=== PATIENT | female | born 1935 | race Caucasian/White ===

== ENCOUNTER → 2016-06-21 | Outpatient (CLI) | payer OTHER ==
[~2016-06-21] VITALS: Ht 160 cm; Wt 79.4 kg
[~2016-06-21] MED LIST: ACYCLOVIR 800800 MG PO; ALIGN4 MG PO; ALLEGRA ALLERG180 MG PO; ASPIR 8181 MG PO; CENTRUM SILVER1 EAC4 PO; GLUCOSAMINE HC500 MG PO; HYDROCHLOROTH12.5 M1 PO; LOVASTATIN 20 M20 MG PO; MEDROLDOSEPACK PO; NORCO 5-325 TA1 EACH PO; PRINIVIL20 M1 PO; TYLENOL325 MG PO; VITAMIN D2000 UNIT PO; WOMEN'S 50+ DA1 EAC1 PO
--- NOTE | ~2016-06-21 | S ---
[facility] [place] [address] SURGICAL PATH RPT PROCEDURE Name: NIHARIKA SPRINGER Room #: REG CLMartha Villanueva.#: [id number] Admission: 06/21/16 Date of : 31 Discharge: Report #: [id number] Path Case #: [id number] PATHOLOGY REPORT COLLECTION DATE: 06/21/2016 RECEIVED DATE: 06/21/2016 SUBMITTING PHYS: Dr. Farhan Maldonado OTHER PHYS: Dr. Amber Peterson SPECIMEN(S) RECEIVED: A.Random colon bx to R/O microscopic colitis * * * * * * * * * * * * FINAL DIAGNOSIS: Large intestine, random colon, rule out microscopic colitis, endoscopic biopsy: - Mild nonspecific changes. (Please see comment) - Negative for microscopic colitis. - Negative for dysplasia or malignancy. COMMENT: Examination shows a rare crypt with cryptitis. There is no surface epithelial inflammation present. Crypt abscess formation is not identified as well. The lamina propria cellularity is comprised of lymphocytes, plasma cells, as well as occasional eosinophils. Crypt architectural abnormalities are not identified. The findings may be suggestive of an acute self-limited episode of colitis, resolving episode of colitis, bowel preparation or medication related. There is no increase in intraepithelial lymphocytosis, or thickening of collagen epithelium. There is no dysplasia or malignancy present. Please correlate clinically. (IUV:csd; d/t: 06/22/2016) PATHOLOGIST: Aleja Padron M.D. REPORT ELECTRONICALLY SIGNED BY: Aleja Padron M.D. DATE/TIME: 06/22/2016 15:48 * * * * * * * * * * * * GROSS PATHOLOGY: Received in formalin labeled "Niharika Springer and random colon bx," are 5 segments of mitchell soft tissue measuring 2.1 x 0.2 x 0.2 cm in aggregate dimensions and ranging from 0.3 to 0.7 cm in maximum dimension. The specimen is submitted entirely in cassette A1. (TTL; 06/21/2016) [address] [address] SURGICAL PATH RPT PROCEDURE Name: NIHARIKA SPRINGER E Room #: REG [facility].#: [id number] Admission: 06/21/16 Date of : 31 Discharge: Report #: [id number] Path Case #: [id number] CLINICAL HISTORY: Change in bowel habits INITIAL CPT CODE(S): A; 22382 Professional services performed by [facility] at [address] , [place] [address] Technical services performed by [facility] at [address] [place] [address], [facility] [address] [address]. [facility] [address] [place] [id number] PHONE: [phone] DIRECTOR: Gaston Amezquita M.D. * * * END OF REPORT * * *
--- NOTE | ~2016-06-21 | P ---
[facility] [place] [address] PROCEDURE REPORT Name: DIMA JASON Room #: REG [facility] HuangAmirah#: [id number] Admission: 06/21/16 Attend Phys: Farhan Seaman Discharge: Date of : 33 Report #: [id number] THIS REPORT FOR: //name// CC: Farhan Peterson MD DATE OF SERVICE: 06/21/2016 PROCEDURE PERFORMED: Colonoscopy with biopsies. HISTORY OF PRESENT ILLNESS: The patient is an 80-year-old female who was seen in the office by myself on 11/23/2015 with a history of intermittent chronic diarrhea. We discussed possibility of irritable bowel syndrome. At that time, she was taking Protonix, which was helpful. Her last colonoscopy was in 2007. She has a family history of colon cancer in her daughter. Despite her probiotic, she continues to have intermittent diarrhea. The plan is for colonoscopy today. She denies any blood in her stools. Her weight has been stable. DESCRIPTION OF PROCEDURE: The risks and benefits of the procedure were explained to the patient, those risks including but not limited to bleeding, perforation, the risk of sedation. She understood these risks and gave informed consent. Sedation was given using propofol per anesthesia. Next, a digital rectal exam was initially performed, which was normal. Next, using a standard [employer] colonoscope, the scope was placed in the patient's anus and advanced under direct vision to the cecum. The overall prep was excellent. The cecum and ileocecal valve were normal in appearance. Diverticulosis was noted throughout the entire colon today. There was no evidence of inflammation, otherwise normal ascending, transverse, descending and sigmoid colon. Random biopsies were obtained to rule out the possibility of microscopic colitis. The rectal mucosa was normal. On retroflexion, no abnormalities were noted. Scope was then withdrawn and the procedure terminated. The patient tolerated the procedure well. IMPRESSION: 1. Pandiverticulosis. 2. Otherwise, normal colonoscopy. RECOMMENDATIONS: 1. Await biopsy results. 2. We discuss starting a trial of Questran at this time for her diarrhea. [facility] [address] [place] [address] PROCEDURE REPORT Name: CASIEDIMA Room #: REG CL Caitie#: [id number] Admission: 06/21/16 Attend Phys: Farhan Seaman Discharge: Date of : 33 Report #: [id number] Thank you for allowing me to participate in her care. By: 0850 1032 Farhan Maldonado MD /nt
== END ==
LOC: GI 07:06
DX: K58.0 Irritable bowel syndrome with diarrhea (principal); Z80.0 Family history of malignant neoplasm of digestive organs; K57.30 Diverticulosis of large intestine without perforation or abscess without bleeding; I10 Essential (primary) hypertension; E78.00 Pure hypercholesterolemia, unspecified; G47.33 Obstructive sleep apnea (adult) (pediatric); Z90.710 Acquired absence of both cervix and uterus; Z90.49 Acquired absence of other specified parts of digestive tract
CPT/HCPCS: 62110; 62900

== ENCOUNTER → 2016-06-26 | Outpatient (CLI) | payer OTHER ==
[~2016-06-26] VITALS: Ht 160 cm; Wt 83.7 kg
[~2016-06-26] MED LIST changes: +HYDROCODONE-AP1 EAC6 PO; +UNICOMPLEX M TA1 TA1 PO
--- NOTE | ~2016-06-26 | HPC ---
[facility] [address] [place] [address] PAIN MANAGEMENT CONSULTATION Name: DIMA JASON Room #: REG PATRICK Kay.#: [id number] Admission: 06/26/16 Attend Phys: Palmer Mejia DO Discharge: Date of : 33 Report #: [id number] THIS REPORT FOR: //name// CC: Mehul Mejia The patient is a very pleasant 80-year-old female seen in consultation at the request of Dr. Marrero for assistance with management of pain, low back, right leg, exacerbated with weightbearing. She has subjective weakness right leg noted primarily going up stairs. Does have a little bowel and bladder incontinence, though she notes no saddle anesthesia. Takes Tylenol for sleep. She unfortunately has been sleeping in her recliner due to ongoing pain. The patient had prior been seen 7 years ago, given epidural injection with overall efficacy. Currently, the patient notes pain is continuous, aching, rates anywhere from 4-6 on a 0-10 visual analog scale. REVIEW OF SYSTEMS: Complete review of systems attached to chart and gone over with the patient. She is . Has history of hypertension, treated with hydrochlorothiazide and lisinopril. Dyslipidemia for which she takes lovastatin, some chronic colon issues and DJD. She did have shingles, right facial distribution about a year and a half ago. This fortunately resolved. The patient is retired. Pain impact score averages about 7.2. PHYSICAL EXAMINATION: VITAL SIGNS: 5 feet 3 inches, 180 pound female, BMI is 32.7 kilograms per meter squared. Blood pressure is 134/77, pulse 84, respirations are 20. NEUROLOGIC: Cranial nerves 2-12 are grossly intact. HEENT: Pupils equal, reactive to light and accommodation. Extraocular muscles are intact. NECK: Thyroid unremarkable. Upper extremity strength is preserved. HEART: Regular and rhythmical with a grade 2/6 systolic ejection murmur. LUNGS: Clear to auscultation. ABDOMEN: Shows modestly endomorphic build. MUSCULOSKELETAL: She does have thoracolumbar kyphosis, markedly antalgic gait. Tender from about L3 down in the lumbar paravertebral area, +1 pretibial edema lower extremity. Right leg is weak compared to the left, perhaps 3/5 to all muscle groups tested, perhaps 4/5 on the left. Patellar and Achilles reflexes are quite diminished but symmetric. Most recent MRI of the lumbar spine from 06/14/2016 notes degenerative changes throughout the lumbar spine, mild right neural foraminal narrowing at [place]4-[place] [address] PAIN MANAGEMENT CONSULTATION Name: DIMA JASON Room #: REG Martha Blood#: [id number] Admission: 06/26/16 Attend Phys: Palmer Mejia DO Discharge: Date of : 33 Report #: [id number] ASSESSMENT: Symptomatic lumbar radiculopathy, component of lumbar spondylosis. The patient prior seen 7 years ago with good relief of epidural injections. RECOMMENDATIONS: 1. Epidural injection under fluoroscopy today at L4-L5. 2. Follow up in 3 weeks for reevaluation and consideration for facet joint injections under fluoroscopy, L4-L5 and L5-S1 bilateral. Thank you for allowing me to participate in the patient's care. I will keep you abreast of her progress. PROCEDURE NOTE: Lumbar epidural injection under fluoroscopy. PROCEDURE: Lumbar epidural steroid injection. PROCEDURE NOTE: After both written and informed consent to include risk of spinal cord damage, increased pain, weakness and dural puncture, the patient was taken to the fluoroscopy suite, placed in the prone position. After sterile prep and drape, a skin wheal with lidocaine was raised. A 22-gauge epidural Tuohy needle was inserted in the midline at L4-L5 with good loss to resistance. Negative aspiration for cerebrospinal fluid or blood was noted. Then 1 mL of Omnipaque under biplanar fluoroscopy showed good spread within the epidural space. This was followed with 80 mg of triamcinolone plus 1 mL of 1.5% preservative-free Xylocaine, 0.5 mL Xylocaine was then injected to flush the needle; it was removed. The patient was monitored for an appropriate period of time and discharged in good and stable condition. <ELECTRONICALLY SIGNED> By: Palmer Mejia DO 06/29/16 1240 [id number] Palmer Mejia DO /nt
[2016-06-26 13:28] VITALS: BP 134/77
== END ==
LOC: PAIN 06:54
DX: M54.16 Radiculopathy, lumbar region (principal); M47.816 Spondylosis without myelopathy or radiculopathy, lumbar region; I10 Essential (primary) hypertension; E78.5 Hyperlipidemia, unspecified; M19.90 Unspecified osteoarthritis, unspecified site; Z90.710 Acquired absence of both cervix and uterus; Z90.49 Acquired absence of other specified parts of digestive tract

== ENCOUNTER → 2016-07-17 | Outpatient (CLI) | payer OTHER ==
[~2016-07-17] VITALS: Ht 162.6 cm; Wt 82.6 kg
[~2016-07-17] MED LIST changes: +APAP500 PO
--- NOTE | ~2016-07-17 | HPC ---
[facility] [place] [address] PAIN MANAGEMENT CONSULTATION Name: DIMA JASON Room #: REG CLMartha Kay.#: [id number] Admission: 07/17/16 Attend Phys: Palmer Mejia DO Discharge: Date of : 33 Report #: [id number] THIS REPORT FOR: //name// CC: Amber Mejia The patient is a very pleasant 80-year-old female. She had an epidural injection on 06/26/2016 at L4-L5, returns to pain clinic today noting very good improvement of baseline pain. She states her pain "hurts," but "the pain is gone now." She has been taking Tylenol over the counter 3 a day. Functional status is improved. She rates her pain as 2-3/10. States she had 80% relief following the injection. Still, however, has pain that interferes with function . Yesterday she had to stop walking secondary to pain. PHYSICAL EXAMINATION: Otherwise unchanged an 80-year-old female, BMI is 31.2 kilograms per meter squared. Blood pressure, pulse and respirations, room air oxygen saturation are all normal as noted on the EMR. Ongoing pain in the back radiating to the right leg, mildly antalgic gait, positive straight leg raise on the right. ASSESSMENT: Symptomatic lumbar radiculopathy, 80% improved with lumbar epidural injection. RECOMMENDATIONS: Repeat epidural injection under fluoroscopy today. We will not make a followup appointment, we will see the patient simply as needed ongoing. PROCEDURE: Lumbar epidural injection under fluoroscopy. PROCEDURE NOTE: After both written and informed consent to include risk of spinal cord damage, increased pain, weakness and dural puncture, the patient was taken to the fluoroscopy suite, placed in the prone position. After sterile prep and drape, a skin wheal with lidocaine was raised. A 22-gauge epidural Tuohy needle was inserted in the midline at L5-S1 with good loss to resistance. Negative aspiration for cerebrospinal fluid or blood was noted. Then 1 mL of Omnipaque under biplanar fluoroscopy showed good spread within the epidural space. This was followed with 80 mg of triamcinolone plus 1 mL of 1.5% preservative-free Xylocaine, 0.5 mL Xylocaine was then injected to flush the needle; it was removed. The patient was monitored for an appropriate period of time and discharged in good and stable condition. By: 1601 0222 Palmer Mejia DO /nt
[2016-07-17 12:47] VITALS: BP 152/89
== END ==
LOC: PAIN 07:46
DX: M54.16 Radiculopathy, lumbar region (principal)

== ENCOUNTER → 2017-01-11 | Outpatient (CLI) | payer OTHER | LOC: NUC 08:22 | DX: M85.89 Other specified disorders of bone density and structure, multiple sites (principal); E21.3 Hyperparathyroidism, unspecified; Z78.0 Asymptomatic menopausal state ==

== ENCOUNTER → 2017-05-14 | Outpatient (CLI) | payer OTHER ==
--- NOTE | ~2017-05-14 | 2DMMODE ---
[facility] [address] [place] [address] 2 D/M-MODE ECHOCARDIOGRAM Name: CASIEDIMA Chepe Room #: REG CL [facility]#: [id number] Admission: 05/14/17 Attend Phys: Devin Brennan MD Discharge: Date of : 31 Date of Service: 05/14/17 0930 Report #: [id number] THIS REPORT FOR: //name// APPROVED REPORT Study performed: 05/14/2017 07:58:02 EXAM: Comprehensive 2D, Doppler, and color-flow Echocardiogram Patient Location: Echo lab Status: routine BSA: 1.76 HR: 52 bpm BP: 159/82 mmHg Other Information Study Quality: Adequate Indications Chest Pain 2D Dimensions RVDd: 28.96 mm LVEF(%): 67.99 (>50%) IVSd: 14.12 (7-11mm) LVOT Diam: 18.74 (18-24mm) LVDd: 38.33 mm PWd: 13.09 (7-11mm) Ascending Ao: 38.43 (22-36mm) LVDs: 24.04 (25-40mm) Aortic Root: 31.50 mm IVC: 16.00 mm Swift's LVEF: 67.99 % Volumes Left Atrial Volume (Systole) Single Plane 4CH: 52.70 mL Single Plane 2CH: 52.28 mL LA ESV Index: 34.00 mL/m2 Aortic Valve AoV Peak Jordan.: 2.19 m/s AO Peak Gr.: 19.23 mmHg LVOT Max P.41 mmHg AO Mean Gr.: 8.82 mmHg LVOT Mean P.81 mmHg AO V2 Mean: 1.39 m/s LVOT Max V: 1.16 m/s AO V2 VTI: 50.24 cm LVOT Mean V: 0.77 m/s AME (VTI): 1.63 cm2 LVOT V1 VTI: 29.65 cm AME Vmax: 1.46 cm2 AI Vmax: 4.37 m/s SV (LVOT): 81.77 mL AI [place]: 1.86 m/s2 [facility] [address] [place] [address] 2 D/M-MODE ECHOCARDIOGRAM Name: CASIEDIMA Room #: REG [facility]#: [id number] Admission: 05/14/17 Attend Phys: Devin Brennan MD Discharge: Date of : 31 Date of Service: 05/14/17 0930 Report #: [id number] PHT: 681.92 ms Mitral Valve E/A Ratio: 0.6 MV Decel. Time: 368.16 ms MV E Max Jordan.: 0.65 m/s MV A Jordan.: 1.13 m/s MV PHT: 106.76 ms IVRT: 134.95 ms Pulmonary Valve PV Peak Jordan.: 0.84 m/s PV Peak Gr.: 2.79 mmHg Pulmonary Vein P Vein S: 0.42 m/s P Vein A: 0.25 m/s P Vein D: 0.29 m/s P Vein A Dur.: 69.2 msec P Vein S/D Ratio: 1.45 Tricuspid Valve TR Peak Jordan.: 2.35 m/s RAP Estimate: 5.00 mmHg TR Peak Gr.: 22.00 mmHg PA Pressure: 27.00 mmHg Left Ventricle The left ventricle is normal size. Mild concentric left ventricular hypertrophy. The left ventricular systolic function is normal. The left ventricular ejection fraction is within the normal range. LVEF is 55-60%. Mild diastolic dysfunction is present (impaired relaxation pattern). Right Ventricle The right ventricle is normal size. The right ventricular systolic function is normal. Atria Left atrium is at the upper limits of normal. The right atrium size is normal. Aortic Valve Aortic valve is calcified. Mild to moderate aortic regurgitation. There is mild valvular aortic stenosis. Calculated aortic valve area is 1.7 cm2 with maximum pressure gradient of 19 mmHg and mean pressure gradient of 9 mmHg. Mitral Valve The mitral valve is normal in structure. Mild mitral regurgitation. [facility] [address] [place] [address] 2 D/M-MODE ECHOCARDIOGRAM Name: DIMA JASON Room #: REG CL [facility]#: [id number] Admission: 05/14/17 Attend Phys: Devin Brennan MD Discharge: Date of : 31 Date of Service: 05/14/17 0930 Report #: [id number] No evidence of mitral valve stenosis. Tricuspid Valve The tricuspid valve is normal in structure. Mild to moderate tricuspid regurgitation. PAP is estimated at 27 mmHg. Pulmonic Valve Pulmonic valve is not well visualized. Great Vessels The aortic root is normal in size. IVC is normal in size and collapses >50% with inspiration. Pericardium There is no pericardial effusion. <Conclusion> The left ventricle is normal size. Mild concentric left ventricular hypertrophy. The left ventricular systolic function is normal. Mild diastolic dysfunction is present (impaired relaxation pattern). The right ventricle is normal size. Mild to moderate aortic regurgitation. There is mild valvular aortic stenosis. Mild mitral regurgitation. Mild to moderate tricuspid regurgitation. PAP is estimated at 27 mmHg. <ELECTRONICALLY SIGNED> By: Devin Brennan MD 05/14/17929 9 9 Devin Brennan MD /INF
== END ==
LOC: CV 07:26
DX: I08.3 Combined rheumatic disorders of mitral, aortic and tricuspid valves (principal)

== ENCOUNTER → 2018-05-13 | Outpatient (CLI) | payer OTHER ==
--- NOTE | 2018-05-13 10:50 | 2DMMODE ---
[place] [address] 2 D/M-MODE ECHOCARDIOGRAM Name: CASIEDIMA Chepe Room #: REG [facility]#: [id number] ������������� Admission: 05/13/18 ������������� Attend Phys: Devin Brennan MD Discharge: ��� ������������� ��� Date of : 31 Date of Service: 05/13/18 1050 �� Report #: [id number] �������� ��������������������������������������������[id number] THIS REPORT FOR: //name// APPROVED REPORT Study performed: 05/13/2018 09:50:38 EXAM: Comprehensive 2D, Doppler, and color-flow Echocardiogram Patient Location: Out-Patient Status: routine BSA: 1.83 HR: 48 bpm BP: 158/70 mmHg Rhythm: NSR/ISAAC Other Information Study Quality: Adequate Indications Chest Pain HTN 2D Dimensions RVDd: 32.34 mm IVSd: 12.10 (7-11mm) LVOT Diam: 19.73 (18-24mm) LVDd: 42.66 mm PWd: 10.46 (7-11mm) LVDs: 30.10 (25-40mm) Aortic Root: 33.68 mm Volumes Left Atrial Volume (Systole) Single Plane 4CH: 43.31 mL Single Plane 2CH: 50.94 mL LA ESV Index: 27.00 mL/m2 Aortic Valve AoV Peak Jordan.: 2.28 m/s AO Peak Gr.: 20.71 mmHg LVOT Max P.19 mmHg AO Mean Gr.: 11.25 mmHg AO V2 Mean: 1.60 m/s LVOT Max V: 1.02 m/s AO V2 VTI: 57.73 cm AME Vmax: 1.37 cm2 AI Vmax: 4.02 m/s AI [place]: 2.49 m/s2 [facility] [place] [address] [place] [address] 2 D/M-MODE ECHOCARDIOGRAM Name: DIMA JASON Chepe Room #: [facility]#: [id number] ������������� Admission: 05/13/18 ������������� Attend Phys: Devin Brennan MD Discharge: ��� ������������� ��� Date of : 31 Date of Service: 05/13/18 1050 �� Report #: [id number] �������� ��������������������������������������������[id number] PHT: 467.99 ms Mitral Valve E/A Ratio: 0.7 MV Decel. Time: 371.33 ms MV E Max Jordan.: 0.90 m/s MV A Jordan.: 1.22 m/s MV PHT: 107.68 ms IVRT: 73.82 ms Pulmonary Valve PV Peak Jordan.: 0.79 m/s PV Peak Gr.: 2.48 mmHg Pulmonary Vein P Vein S: 0.68 m/s P Vein A: 0.27 m/s P Vein D: 0.44 m/s P Vein A Dur.: 152.2 msec P Vein S/D Ratio: 1.55 Tricuspid Valve TR Peak Jordan.: 2.52 m/s RAP Estimate: 5.00 mmHg TR Peak Gr.: 25.33 mmHg PA Pressure: 30.00 mmHg Left Ventricle The left ventricle is normal size. There is normal LV segmental wall motion. Moderate basal septal hypertrophy is present. Left ventricular systolic function is normal. LVEF is 60%. Mild diastolic dysfunction is present (impaired relaxation pattern). Right Ventricle The right ventricle is normal size. The right ventricular systolic function is normal. Atria Left atrium is at the upper limits of normal. The right atrium size is normal. Aortic Valve Aortic valve is moderately calcified. Mild to moderate aortic regurgitation. Mitral Valve Mitral valve leaflets are mildly thickened. Mild mitral annular calcification. Moderate mitral regurgitation. Tricuspid Valve [facility] [address] [place] [address] 2 D/M-MODE ECHOCARDIOGRAM Name: DIMA JASON Room #: REG [facility]#: [id number] ������������� Admission: 05/13/18 ������������� Attend Phys: Devin Brennan MD Discharge: ��� ������������� ��� Date of : 31 Date of Service: 05/13/18 1050 �� Report #: [id number] �������� ��������������������������������������������[id number] The tricuspid valve is normal in structure. Mild to moderate tricuspid regurgitation. Estimated PAP is 30mmHg. Pulmonic Valve Pulmonic valve is not well visualized. Trace pulmonic regurgitation. Great Vessels The aortic root is normal in size. Ascending aorta is not well visualized. IVC is normal in size and collapses >50% with inspiration. Pericardium There is no pericardial effusion. <Conclusion> The left ventricle is normal size. Left ventricular systolic function is normal. Mild diastolic dysfunction is present (impaired relaxation pattern). The right ventricle is normal size. Left atrium is at the upper limits of normal. Aortic valve is moderately calcified. Mild to moderate aortic regurgitation. Moderate mitral regurgitation. Mild to moderate tricuspid regurgitation. Estimated PAP is 30mmHg. ��������������������������������������������� <ELECTRONICALLY SIGNED> ���������������������������������������� By: Devin Brennan MD ��������������������������������������������� 05/13/18 1050 105 1050 Devin Brennan MD /INF
== END ==
LOC: CV 08:59
DX: I08.3 Combined rheumatic disorders of mitral, aortic and tricuspid valves (principal); I10 Essential (primary) hypertension

== ENCOUNTER 2019-05-01 09:30 | Outpatient (CLI) | payer OTHER ==
[2019-11-20] MEDS ORDERED: ASA81BEC PO (09:08)
== END 2019-11-19 | disposition home or self-care (01) ==
LOC: CANPRECLI → NUC 09:30
PROVIDERS: ATTEND Internal Medicine Cardiovascular Disease
DX: R07.9 Chest pain, unspecified (principal); Z53.8 Procedure and treatment not carried out for other reasons

== ENCOUNTER → 2019-05-19 | Outpatient (CLI) | payer OTHER | LOC: SJCVCIMAG 06:57 | DX: I44.0 Atrioventricular block, first degree (principal); I34.0 Nonrheumatic mitral (valve) insufficiency; E78.00 Pure hypercholesterolemia, unspecified; R60.0 Localized edema; I10 Essential (primary) hypertension; E78.5 Hyperlipidemia, unspecified; Z79.82 Long term (current) use of aspirin; Z79.899 Other long term (current) drug therapy; Z88.6 Allergy status to analgesic agent ==

== ENCOUNTER → 2019-11-20 | Outpatient (CLI) | payer OTHER ==
[~2019-11-20] MED LIST changes: +ASA81BEC PO
[2019-11-20 09:02] LABS: HEMATOCRIT 34.8 % (37.0-47.0); MCH 32.7 pg (26.0-34.0); MCHC 34.5 g/dL (28.0-37.0); MCV 94.6 fL (80.0-100.0); RBC 3.68 mil/uL (4.20-5.00); RDW 13.9 % (10.5-14.5); WBC 7.1 thou/uL (4.0-11.0)
[2019-11-20 09:10] LABS: CALCIUM 9.5 mg/dL (8.5-10.1); CREATININE 1.6 mg/dL (0.6-1.0); POTASSIUM 4.3 mmol/L (3.5-5.1)
--- NOTE | 2019-11-20 10:06 | EKG ---
[facility] [place] [place] [address] ELECTROCARDIOGRAM REPORT Name: DIMA JASON Room #: REG [facility].#: [id number] Admission: 11/20/19 Attend Phys: Devin Brennan MD Discharge: Date of : 31 Report #: [id number] THIS REPORT FOR: cc: Margarette Fraire MD, Jennifer S. MD Lammoglia, Francisco J. MD ~ THIS REPORT FOR: //name// [facility] Test Date: 2019-11-20 Test Time: 09:11:46 Pat Name: DIMA JASON Department: Room: Gender: F [employer] Architect: SILVINA : 1935 Requested By: Devin Brennan Order Number: [id number] MD: Enzo Kraft Measurements Intervals [place] Rate: 56 P: 0 ID: [id number] QRS: 4 QRSD: 87 T: 26 QT: 479 QTc: 463 Interpretive Statements Sinus rhythm Prolonged ID interval early transition Nonspecific ST-T wave change Compared to ECG 10/07/2007 09:28:30 First degree AV block now more evident Electronically Signed On 11-20-2019 10:06:15 CDT by Enzo Kraft [email or web address] <ELECTRONICALLY SIGNED> By: Enzo Kraft MD 11/20/19 1006 0 0 Enzo Kraft MD /EPI
--- NOTE | 2019-11-20 13:23 | CATHLAB ---
[facility] [place] [address] INVASIVE PROCEDURE REPORT Name: DIMA JASON Room #: REG PATRICK Amirah.#: [id number] Admission: 11/20/19 Attend Phys: Devin Brennan MD Discharge: Date of : 31 Report #: [id number] THIS REPORT FOR: cc: Margarette Fraire MD, Jennifer S. MD Park, Jin S. MD ~ APPROVED REPORT Study performed: 11/20/2019 09:56:14 Patient Details Patient Status: Out-Patient Room #: The patient is a 84 year-old female Event Personnel Devin Brennan Clutch Specialist, Vicenta Moeller RN RN, Livan Cheung RTR Willie Osuna Sherra RTGuilherme Monitor Procedures Performed Art Access - R femoral artery* Left Heart Cath w/or w/o Coronaries [id number] [facility] [address] Initial Mod Sed Same Phys/QHP Gr5y 947140 08820 Mod Sed Same Phys/QHP Ea 459040 Hemostasis with Manual pressure Indication Dyspnea, Chest pain Risk Factors HypercholesterolemiaPhysical Activity, Hypertension Procedure Narrative The Right Groin^ was infiltrated with 1% Lidocaine subcutaneous anesthesia. A PINNACLE 4FR Sheath #[id number] sheath was inserted into the RFA^. Coronary angiography was performed using coronary diagnostic catheters. The right coronary system was accessed and visualized with a JR4 catheter. The left coronary system was accessed and visualized with a JL4 catheter. The left ventricle was accessed and visualized with a PIGTAIL catheter. Left ventriculogram was performed in 30 degree projection. Hemostasis was obtained with manual pressure following sheath removal without any complications. The patient tolerated the procedure well and there were no complications associated with the procedure. There was no hematoma. [facility] [address] [place] [address] INVASIVE PROCEDURE REPORT Name: DIMA JASON Room #: REG [facility]#: [id number] Admission: 11/20/19 Attend Phys: Devin Brennan MD Discharge: Date of : 31 Report #: [id number] Intraoperative Conscious Sedation Sedation start time: 1034 Case end Time: 1117 Fentanyl 50 mcg Versed 1 mg Fluoro Time: 6.10 minutes Dose: DAP 6364.00 cGycm2 617 mGy Contrast Type and Amount: Visipaque 85 ml Coronary Angiography The patient's coronary anatomy is right dominant. Diagnostic Cath Left Main This is a large-caliber vessel, patent with no flow-limiting lesions. LAD The LAD is a moderate-sized caliber vessel, tapers down in the distal segment. There is mild disease in the proximal segment. Diagonal 1 This is a small caliber vessel, patent with no flow-limiting lesions. Diagonal 2 This is a small caliber vessel, patent with no flow-limiting lesions. Circumflex This is a moderate-sized caliber vessel, patent with no flow-limiting lesions. OM1 This is a moderate-sized caliber vessel, patent with no flow-limiting lesions. OM2 There is a small to moderate-sized caliber vessel, patent with no flow-limiting lesions. Right Coronary The RCA is a dominant vessel, with mild disease in the mid and distal segments. R PDA This is a moderate-sized caliber vessel, patent with no flow-limiting lesions. RPLV There is a small to moderate-sized caliber vessel, patent with no flow-limiting lesions. Left Ventriculography The left ventricle is normal in size with normal contractility. The left ventricular ejection fraction is estimated to be 60%. Hemodynamics The aortic pressure is 183/72 mmHg with a mean of 103 mmHg. The left ventricular pressure is 201/14 mmHg with a mean of mmHg. The left ventricular end diastolic pressure is 24 mmHg. Conclusion [facility] [address] [place] [address] INVASIVE PROCEDURE REPORT Name: DIMA JASON Room #: REG CL [facility]#: [id number] Admission: 11/20/19 Attend Phys: Devin Brennan MD Discharge: Date of : 31 Report #: [id number] 1. 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 2. There is normal LV systolic function. 3. Recommend aggressive risk factor management. <ELECTRONICALLY SIGNED> By: Devin Brennan MD 11/20/19 1323 1323 1323 Devin Brennan MD /INF
== END | disposition home or self-care (01) ==
LOC: CATH 07:50
PROVIDERS: ATTEND Internal Medicine Cardiovascular Disease
DX: R07.9 Chest pain, unspecified (principal); R06.00 Dyspnea, unspecified; I25.10 Atherosclerotic heart disease of native coronary artery without angina pectoris; I10 Essential (primary) hypertension; E78.00 Pure hypercholesterolemia, unspecified; K21.9 Gastro-esophageal reflux disease without esophagitis; Z98.890 Other specified postprocedural states; Z79.899 Other long term (current) drug therapy; Z90.49 Acquired absence of other specified parts of digestive tract; Z90.710 Acquired absence of both cervix and uterus; Z88.8 Allergy status to other drugs, medicaments and biological substances; Z79.82 Long term (current) use of aspirin

== ENCOUNTER → 2019-12-04 | Outpatient (CLI) | payer OTHER | LOC: SJCVC 13:01 | PROVIDERS: ATTEND Internal Medicine Cardiovascular Disease | DX: I25.10 Atherosclerotic heart disease of native coronary artery without angina pectoris (principal); E78.00 Pure hypercholesterolemia, unspecified; I10 Essential (primary) hypertension; R94.31 Abnormal electrocardiogram [ECG] [EKG]; Z79.82 Long term (current) use of aspirin; Z79.899 Other long term (current) drug therapy; Z90.49 Acquired absence of other specified parts of digestive tract; Z90.710 Acquired absence of both cervix and uterus; Z90.09 Acquired absence of other part of head and neck ==

== ENCOUNTER → 2019-12-18 | Outpatient (CLI) | payer OTHER | LOC: LAB 13:25 | PROVIDERS: ATTEND Internal Medicine | DX: U07.1 COVID-19 (principal) ==

== ENCOUNTER → 2020-05-24 | Outpatient (CLI) | payer OTHER | LOC: SJCVC 13:36 | PROVIDERS: ATTEND Internal Medicine Cardiovascular Disease | DX: I25.10 Atherosclerotic heart disease of native coronary artery without angina pectoris (principal); R94.31 Abnormal electrocardiogram [ECG] [EKG]; I10 Essential (primary) hypertension; E78.00 Pure hypercholesterolemia, unspecified; I34.0 Nonrheumatic mitral (valve) insufficiency; R60.0 Localized edema; R06.00 Dyspnea, unspecified; Z90.49 Acquired absence of other specified parts of digestive tract; Z90.710 Acquired absence of both cervix and uterus; Z98.890 Other specified postprocedural states; Z88.8 Allergy status to other drugs, medicaments and biological substances; Z79.82 Long term (current) use of aspirin; Z79.899 Other long term (current) drug therapy; Z86.16 Personal history of COVID-19; Z82.49 Family history of ischemic heart disease and other diseases of the circulatory system ==

== ENCOUNTER → 2020-11-24 | Outpatient (CLI) | payer OTHER | LOC: SJCVCIMAG 07:49 | PROVIDERS: ATTEND Internal Medicine Cardiovascular Disease | DX: I08.0 Rheumatic disorders of both mitral and aortic valves (principal); R94.31 Abnormal electrocardiogram [ECG] [EKG]; I25.10 Atherosclerotic heart disease of native coronary artery without angina pectoris; I10 Essential (primary) hypertension; E78.00 Pure hypercholesterolemia, unspecified; R06.00 Dyspnea, unspecified; R60.0 Localized edema; I12.9 Hypertensive chronic kidney disease with stage 1 through stage 4 chronic kidney disease, or unspecified chronic kidney disease; N18.9 Chronic kidney disease, unspecified; M48.00 Spinal stenosis, site unspecified; Z79.82 Long term (current) use of aspirin; Z79.899 Other long term (current) drug therapy; Z86.16 Personal history of COVID-19; Z88.5 Allergy status to narcotic agent; Z82.49 Family history of ischemic heart disease and other diseases of the circulatory system ==